=== PATIENT | female | born 2000 | race Two or more races ===

== ENCOUNTER 2019-06-03 13:55 | Inpatient (IN) | payer MEDICAID ==
[~2019-06-03] VITALS: Ht 157.5 cm; Wt 52.6 kg
[2019-06-03 14:53] LABS: BASOPHILS % (AUTO) 0.6 % (0-1); EOSINOPHILS # (AUTO) 0.2 X10'3 (0-0.9); EOSINOPHILS % (AUTO) 2.5 % (0-6); HEMATOCRIT 37.3 % (35.0-45.0); HEMOGLOBIN 12.6 g/dl (12.0-16.0); LYMPHOCYTES # (AUTO) 1.7 X10'3 (1.1-4.8); LYMPHOCYTES % (AUTO) 26.3 % (21-51); MEAN CORPUSCULAR HEMOGLOBIN 30.6 PG (27.0-31.0); MEAN CORPUSCULAR HGB CONC 33.7 g/dL (33.0-36.5); MEAN CORPUSCULAR VOLUME 90.7 FL (78-98); MEAN PLATELET VOLUME 9.1 FL (7.4-10.4); MONOCYTES # (AUTO) 0.6 X10'3 (0-0.9); MONOCYTES % (AUTO) 9.1 % (2-12); NEUTROPHILS # (AUTO) 4.1 X10'3 (1.8-7.7); NEUTROPHILS % (AUTO) 61.5 % (42-75); PLATELET COUNT 167 X10'3 (140-440); RED BLOOD COUNT 4.11 X10'6 (4.20-5.60); RED CELL DISTRIBUTION WIDTH 13.4 % (11.5-14.5); WHITE BLOOD COUNT 6.6 X10'3 (4.5-11.0)
[2019-06-03] MEDS ORDERED: NO HOME MEDS (15:03)
[2019-06-03 15:08] LABS: ALANINE AMINOTRANSFERASE 15 U/L (12-78); ALBUMIN 3.9 G/DL (3.4-5.0); ALKALINE PHOSPHATASE 47 IU/L (20-180); ANION GAP 8 (8-16); ASPARTATE AMINO TRANSFERASE 16 U/L (10-37); BILIRUBIN,TOTAL 0.7 MG/DL (0.1-1.0); BLOOD UREA NITROGEN 5 MG/DL (7-18); BUN/CREATININE RATIO 10.2 (6.6-38.0); CALCIUM 8.8 MG/DL (8.5-10.1); CHLORIDE 105 MMOL/L (99-107); CREATININE 0.49 MG/DL (0.40-0.90); GLUCOSE 75 MG/DL (70-104); POTASSIUM 4.1 MMOL/L (3.5-5.1); SODIUM 141 MMOL/L (135-145); TOTAL CARBON DIOXIDE 28.5 MMOL/L (24-32); TOTAL PROTEIN 7.8 G/DL (6.4-8.2); eGFR > 90 ML/MIN
[2019-06-03 15:19] LABS: CLARITY,URINE SLIGHTLY CLOUDY (Clear); COLOR,URINE YELLOW (Yellow); GLUCOSE, URINE NEGATIVE (Neg); KETONES,URINE NEGATIVE (Neg); LEUKOCYTE ESTERASE ,URINE NEGATIVE (Neg); NITRITES, URINE NEGATIVE (Neg); OCCULT BLOOD,URINE NEGATIVE (Neg); PH,URINE 6.5 (4.8-8.0); PROTEIN,URINE NEGATIVE (Neg); UROBILINOGEN,URINE 0.2 E.U/dL (0.2-1.0)
[2019-06-03 15:24] LABS: UA COLLECTION TYPE CLN CATCH MIDSTREAM; URINE HCG NEGATIVE (NEG)
[2019-06-03 15:26] LABS: MUCUS STRANDS FEW /LPF (Neg); SQUAMOUS EPITHELIAL CELL,UR FEW /LPF (FEW)
[2019-06-03 15:27] LABS: BACTERIA,URINE 1+ /HPF (Neg); RBC,URINE 0-2 /HPF (0-2); WBC,URINE 0-4 /HPF (0-4)
--- NOTE | 2019-06-03 16:53 | NUR ---
Chaperoned Dr. Ray with pt. during sensitive questioning while father of pt was out of room. Pt answered all questions without issue.
[2019-06-03] MEDS ORDERED: acetaminophen 325mg tablet PO PRN ×2 (18:00)
[2019-06-03] MEDS ORDERED: morphine 2 MG/ML inj. syringe IV PRN (18:00)
[2019-06-03] MEDS ORDERED: mag hydrox/Alum hydrox/simeth 30ml oral suspension PO PRN (18:00)
[2019-06-03] MEDS ORDERED: potassium CL 10mEq/100ml bag 100 ML IV PRN ×2 (18:00)
[2019-06-03] MEDS ORDERED: HYDROcodone/acetaminophen 5mg/325mg tablet PO PRN (18:00)
[2019-06-03] MEDS ORDERED: magnesium 4gm in 100ml NS 100 ML IV PRN (18:00)
[2019-06-03] MEDS ORDERED: magnesium Cl slow-release 64mg tablet PO PRN (18:00)
[2019-06-03] MEDS ORDERED: HYDROcodone/acetaminophen 10/325mg tab PO PRN (18:00)
[2019-06-03] MEDS: K and/or MAG REPLACEMENT MC SCH (18:00)
[2019-06-03] MEDS ORDERED: magnesium 2GM in 50ml NS 50 ML IV PRN (18:00)
[2019-06-03] MEDS ORDERED: potassium Cl 20 mEq SR tablet PO PRN ×2 (18:00)
[2019-06-03] MEDS ORDERED: magnesium hydroxide 30ml (MOM) UD suspension PO PRN (18:00)
[2019-06-03] MEDS ORDERED: ondansetron/PF 4mg/2ml inj IV PRN (18:00)
[2019-06-03] MEDS: normal saline 1000ml 1,000 ML IV SCH (18:27)
--- NOTE | 2019-06-03 20:22 | NUR ---
Patient in room . I have received report from MARKUS Barrera and had the opportunity to ask questions and assume patient care.
[2019-06-03 20:30] VITALS: BP 105/58
[2019-06-04] VITALS (22 sets, daily range): BP systolic 84–119; BP diastolic 34–75
[2019-06-04] MEDS: normal saline 1000ml 1,000 ML IV SCH ×3 (03:40→13:56)
[2019-06-04 05:30] LABS: BASOPHILS % (AUTO) 0.4 % (0-1); EOSINOPHILS # (AUTO) 0.2 X10'3 (0-0.9); EOSINOPHILS % (AUTO) 2.8 % (0-6); HEMATOCRIT 34.7 % (35.0-45.0); HEMOGLOBIN 11.7 g/dl (12.0-16.0); LYMPHOCYTES # (AUTO) 1.7 X10'3 (1.1-4.8); LYMPHOCYTES % (AUTO) 29.3 % (21-51); MEAN CORPUSCULAR HEMOGLOBIN 30.3 PG (27.0-31.0); MEAN CORPUSCULAR HGB CONC 33.6 g/dL (33.0-36.5); MEAN CORPUSCULAR VOLUME 90.2 FL (78-98); MONOCYTES # (AUTO) 0.4 X10'3 (0-0.9); NEUTROPHILS # (AUTO) 3.5 X10'3 (1.8-7.7); NEUTROPHILS % (AUTO) 60.5 % (42-75); PLATELET COUNT 152 X10'3 (140-440); RED BLOOD COUNT 3.85 X10'6 (4.20-5.60); RED CELL DISTRIBUTION WIDTH 13.4 % (11.5-14.5); WHITE BLOOD COUNT 5.7 X10'3 (4.5-11.0)
[2019-06-04 05:38] LABS: ALBUMIN 3.4 G/DL (3.4-5.0); ANION GAP 8 (8-16); BLOOD UREA NITROGEN 8 MG/DL (7-18); BUN/CREATININE RATIO 18.6 (6.6-38.0); CALCIUM 8.2 MG/DL (8.5-10.1); CHLORIDE 108 MMOL/L (99-107); CREATININE 0.43 MG/DL (0.40-0.90); GLUCOSE 89 MG/DL (70-104); MAGNESIUM 1.9 MG/DL (1.5-2.4); POTASSIUM 3.8 MMOL/L (3.5-5.1); SODIUM 141 MMOL/L (135-145); TOTAL CARBON DIOXIDE 24.7 MMOL/L (24-32); eGFR > 90 ML/MIN
--- NOTE | 2019-06-04 06:01 | NUR ---
Problems reprioritized. Patient report given, questions answered & plan of care reviewed with MARKUS Heaton.
--- NOTE | 2019-06-04 06:52 | NUR ---
Patient in room [facility]. I have received report from Spenser APARICIO and had the opportunity to ask questions and assume patient care.
[2019-06-04] MEDS: K and/or MAG REPLACEMENT MC SCH (08:00)
[2019-06-04] MEDS ORDERED: ondansetron/PF 4mg/2ml inj IV PRN (10:10)
[2019-06-04] MEDS ORDERED: proCHLORperazine 10 MG/2 ml inj IV PRN (10:10)
[2019-06-04] MEDS ORDERED: meperidine/PF 25mg/ml syringe IV PRN ×2 (10:10)
[2019-06-04] MEDS ORDERED: ringers solution, lacted 1,000 ML IV SCH (10:10)
[2019-06-04] MEDS ORDERED: morphine 4 MG/ML inj SYRINge IV PRN ×2 (10:10)
--- NOTE | 2019-06-04 10:58 | NUR ---
Patient and her mother and father reports that patient is not allergic to penicillins. Patient and both parents stated she does not have any allergies.
--- NOTE | 2019-06-04 11:13 | NUR ---
pt transported to OR
[2019-06-04] MEDS ORDERED: sevoflurane 250ml liquid IH ONE (12:10)
[2019-06-04] MEDS ORDERED: rocuronium 10mg/ml inj IV ONE (12:10)
[2019-06-04] MEDS ORDERED: fentaNYL/PF 50MCG/1 ML 2ML syringe ONE ×2 (12:20→12:42)
[2019-06-04] MEDS ORDERED: midazolam 2 mg/2 ml injection ONE (12:21)
[2019-06-04] MEDS ORDERED: propofol inj 20 ML IV ONE (12:38)
[2019-06-04] MEDS ORDERED: LIDOcaine 2% (20mg/ml) 5ml vial ONE (12:38)
[2019-06-04] MEDS ORDERED: ketorolac trometh. 30mg/ml inj. ONE (12:38)
[2019-06-04] MEDS ORDERED: ceFAZolin 1000mg inj ONE (12:39)
[2019-06-04] MEDS ORDERED: glycopyrrolate 0.2mg/ml inj ONE (13:14)
[2019-06-04] MEDS ORDERED: neostigmine methylsulfate 1 MG/ML 10ml vial ONE (13:15)
--- NOTE | 2019-06-04 13:30 | NUR ---
Received from OR via , accompanied by Anesthesiologist DR FORREST and report given by Anesthesiolgist. PT ARRIVED TO PACU CRYING, PT IS ANXIOUS AND DENIES PAIN AT THIS TIME, SKIN WARM AND PINK, PIV RIGHT FA 22G WITH LR 100ML/HR, VSS, ABD HAS 2 BA'S AND 4X4 WITH FOAM TAPE ALL CD.
[2019-06-04] MEDS ORDERED: midazolam 2 mg/2 ml injection IV ONE (13:40)
[2019-06-04] MEDS: meperidine/PF 25mg/ml syringe IV PRN ×2 (13:44→14:08)
--- NOTE | 2019-06-04 13:45 | NUR ---
PT CONT TO CRY AND STATES HER CHEST HURTS AND SHE IS HAVING DIFFICULTY BREATHING. DR FORREST NOTIFIED AND DR FORREST CAME TO SEE THE PT. DR FORREST STATED SHE HAD AN ANXIETY ATTACK PRIOR TO SURGERY IN THE OR. DR FORREST ORDERED VERSED IV TO BE GIVEN PRN ANXIETY.
--- NOTE | 2019-06-04 14:43 | NUR ---
Patient in room [facility]. I have received report from Pham Dey in recovery and had the opportunity to ask questions and assume patient care.
--- NOTE | 2019-06-04 15:00 | NUR ---
Report called to receiving nurse. Transferred via [facility] . Special Issues communicated to receiving nurse.PT IS AWAKE AND CALMING DOWN. NO LONGER TEARFUL. VSS, NO C/O PAIN, MARCIA FLUIDS, MEETS DISCHARGE CRITERIA. PT WILL BE DISCHARGED FROM SURGICAL. SCRIPT CALLED INTO [facility] TO
--- NOTE | 2019-06-04 15:09 | NUR ---
Pt returned from recovery with a lot of pain and discomfort. Called Dr. Calhoun to ask for an order of Toradol. Pt A & O parent by her bed side.
[2019-06-04] MEDS: morphine 2 MG/ML inj. syringe IV PRN ×2 (15:21→19:31)
--- NOTE | 2019-06-04 15:39 | NUR ---
Spoke to Dr. Calhoun, Dr Nix Toradol 30mg Q6 PRN, advance to regular diet as tolerated and to keep pt over night if pt is not "ready".
[2019-06-04] MEDS: ketorolac trometh. 30mg/ml inj. IV PRN (16:59)
--- NOTE | 2019-06-04 18:30 | NUR ---
Patient in room [facility]. I have received report from Florina RN and MARKUS Sarabia and had the opportunity to ask questions and assume patient care.
--- NOTE | 2019-06-04 18:42 | NUR ---
Problems reprioritized. Patient report given, questions answered & plan of care reviewed with Tatyana APARICIO.
[2019-06-04 21:16] LABS: CLARITY,URINE CLEAR (Clear); COLOR,URINE STRAW (Yellow); GLUCOSE, URINE NEGATIVE (Neg); KETONES,URINE 40 mg/dl (Neg); LEUKOCYTE ESTERASE ,URINE NEGATIVE (Neg); NITRITES, URINE NEGATIVE (Neg); OCCULT BLOOD,URINE NEGATIVE (Neg); PH,URINE 6.5 (4.8-8.0); PROTEIN,URINE NEGATIVE (Neg); UROBILINOGEN,URINE 0.2 E.U/dL (0.2-1.0)
[2019-06-04 21:17] LABS: UA COLLECTION TYPE NON-SPECIFIED
[2019-06-05] MEDS: ketorolac trometh. 30mg/ml inj. IV PRN ×2 (01:29→09:22)
[2019-06-05 04:00] VITALS: BP 96/54
[2019-06-05 05:24] LABS: BASOPHILS % (AUTO) 0.2 % (0-1); EOSINOPHILS % (AUTO) 0.1 % (0-6); HEMATOCRIT 31.1 % (35.0-45.0); HEMOGLOBIN 10.7 g/dl (12.0-16.0); LYMPHOCYTES # (AUTO) 1.1 X10'3 (1.1-4.8); LYMPHOCYTES % (AUTO) 12.9 % (21-51); MEAN CORPUSCULAR HEMOGLOBIN 30.8 PG (27.0-31.0); MEAN CORPUSCULAR HGB CONC 34.4 g/dL (33.0-36.5); MEAN CORPUSCULAR VOLUME 89.8 FL (78-98); MEAN PLATELET VOLUME 9.3 FL (7.4-10.4); MONOCYTES # (AUTO) 0.8 X10'3 (0-0.9); MONOCYTES % (AUTO) 9.2 % (2-12); NEUTROPHILS # (AUTO) 6.7 X10'3 (1.8-7.7); NEUTROPHILS % (AUTO) 77.6 % (42-75); PLATELET COUNT 142 X10'3 (140-440); RED BLOOD COUNT 3.46 X10'6 (4.20-5.60); RED CELL DISTRIBUTION WIDTH 13.3 % (11.5-14.5); WHITE BLOOD COUNT 8.6 X10'3 (4.5-11.0)
[2019-06-05 05:36] LABS: ANION GAP 6 (8-16); BLOOD UREA NITROGEN 5 MG/DL (7-18); CALCIUM 8.3 MG/DL (8.5-10.1); CHLORIDE 109 MMOL/L (99-107); GLUCOSE 129 MG/DL (70-104); MAGNESIUM 1.8 MG/DL (1.5-2.4); SODIUM 140 MMOL/L (135-145); TOTAL CARBON DIOXIDE 24.9 MMOL/L (24-32); eGFR > 90 ML/MIN
--- NOTE | 2019-06-05 06:16 | NUR ---
Problems reprioritized. Patient report given, questions answered & plan of care reviewed with MARKUS Cadena and MARKUS Olivares.
--- NOTE | 2019-06-05 06:20 | NUR ---
Patient in room [facility]. I have received report from MARKUS Joe and had the opportunity to ask questions and assume patient care.
--- NOTE | 2019-06-05 06:24 | NUR ---
Patient in room [facility]. I have received report from Tammi APARICIO and had the opportunity to ask questions and assume patient care.
[2019-06-05 08:00] VITALS: BP 98/46
[2019-06-05] MEDS: K and/or MAG REPLACEMENT MC SCH (08:08)
[2019-06-05 11:00] VITALS: BP 90/47
== END 2019-06-05 14:15 | disposition home or self-care (01) | DRG 263 ==
LOC: ER 13:56 → SUR 3N 20:39 → CMPBEDREQ 20:56
PROVIDERS: ADMIT Family Medicine; ATTEND Family Medicine
PROC: 0FT44ZZ Resection of Gallbladder, Percutaneous Endoscopic Approach (ICD-10-PCS; principal; 2019-06-04 12:10)
DX: K80.10 Calculus of gallbladder with chronic cholecystitis without obstruction (principal); N39.0 Urinary tract infection, site not specified; Z88.0 Allergy status to penicillin; Z79.899 Other long term (current) drug therapy
CPT/HCPCS: 36415; 76700; 80048; 80053; 81001; 81003; 81025; 82948; 83735; 85025; 85610; 87081; 87088; 99285; A4618; A6449; A7000; G0378; J0690; J1885; J2001; J2175; J2250; J2270; J2405; J2704; J2710; J3010; J3490; J7030; J7120

== ENCOUNTER 2019-06-21 23:31 | Emergency (ER) | payer MEDICAID, OTHER ==
[~2019-06-21] VITALS: Ht 154.9 cm; Wt 52.3 kg
[~2019-06-21 23:31] MED LIST: NO HOME MEDS
[2019-06-21 23:39] VITALS: BP 107/60
[2019-06-22] MEDS ORDERED: LORA1TAB PO (00:10)
[2019-06-22 00:51] LABS: URINE HCG NEGATIVE (NEG)
[2019-06-22 00:58] LABS: URINE AMPHETAMINE SCREEN NEGATIVE (Neg); URINE BARBITUATE SCREEN NEGATIVE (Neg); URINE BENZODIAZEPINES SCREEN NEGATIVE (Neg); URINE COCAINE SCREEN NEGATIVE (Neg); URINE METHADONE SCREEN NEGATIVE (Neg); URINE OPIATE SCREEN NEGATIVE (Neg); URINE PHENCYCLIDINE SCREEN NEGATIVE (Neg)
[2019-06-22 01:18] LABS: URINE CANNABINOID SCREEN NEGATIVE (Neg)
[2019-06-22 01:23] LABS: CLARITY,URINE CLEAR (Clear); COLOR,URINE YELLOW (Yellow); GLUCOSE, URINE NEGATIVE (Neg); KETONES,URINE NEGATIVE (Neg); LEUKOCYTE ESTERASE ,URINE NEGATIVE (Neg); NITRITES, URINE NEGATIVE (Neg); OCCULT BLOOD,URINE NEGATIVE (Neg); PH,URINE 7.5 (4.8-8.0); PROTEIN,URINE NEGATIVE (Neg); UROBILINOGEN,URINE 0.2 E.U/dL (0.2-1.0)
[2019-06-22 01:24] LABS: UA COLLECTION TYPE CLN CATCH MIDSTREAM
== END 2019-06-22 00:29 | disposition home or self-care (01) ==
LOC: ER 23:31
DX: G47.00 Insomnia, unspecified (principal); Z79.899 Other long term (current) drug therapy
CPT/HCPCS: 80305; 81003; 81025; 99283

== ENCOUNTER 2023-03-25 16:06 | Emergency (ER) | payer MEDICAID, OTHER ==
[~2023-03-25] VITALS: Ht 157.5 cm; Wt 53.8 kg
[2023-03-25 16:24] VITALS: BP 107/71
== END 2023-03-25 18:53 | disposition home or self-care (01) ==
LOC: ER 16:07
DX: J02.9 Acute pharyngitis, unspecified (principal); F41.9 Anxiety disorder, unspecified
CPT/HCPCS: 87081; 87880; 99283